=== PATIENT | female | born 1985 | race American Indian/Alaskan Native ===

== ENCOUNTER 2021-10-27 03:41 | Emergency (ER) | payer BC ==
--- NOTE | 2021-10-27 09:07 | Emergency Department Report ---
ED General Adult HPI - General Chief complaint: Extremity Problem,Nontraumatic Stated complaint: STOKE LIKE SYMPTOMS Time Seen by Provider: 10/27/21 07:46 Source: patient Mode of arrival: Ambulatory Limitations: No Limitations - History of Present Illness Initial comments: 36 yo F with history hypertension who now present with left upper and lower leg tingling and numbness x the last 6 months. She described it as pin and needle under her skin. She denies any illicit drug use. No other modifying or associated factors. - Related Data Previous Rx's Medication Instructions Recorded Last Taken Type hydrOXYzine PAMOATE [Vistaril] 50 mg PO Q6HR PRN 5 Days #15 10/27/21 Unknown Rx capsule NS Allergies Allergy/AdvReac Type Severity Reaction Status Date / Time No Known Allergies Allergy Verified 10/27/21 03:46 ED Review of Systems ROS: Stated complaint: STOKE LIKE SYMPTOMS Other details as noted in HPI Comment: All other systems reviewed and negative Skin: other (tingling and numbness upper left limb and lower left leg) ED Past Medical Hx - Social History Smoking Status: Current Every Day Smoker Substance Use Type: Alcohol - Medications Home Medications: Home Medications Medication Instructions Recorded Confirmed Last Taken Type hydrOXYzine PAMOATE [Vistaril] 50 mg PO Q6HR PRN 5 Days #15 10/27/21 Unknown Rx capsule NS ED Physical Exam - General Limitations: No Limitations General appearance: alert, in no apparent distress - Head Head exam: Present: normal inspection - Eye Eye exam: Present: normal appearance Pupils: Present: normal accommodation - ENT ENT exam: Present: normal exam, normal orophraynx, mucous membranes moist - Neck Neck exam: Present: normal inspection, full ROM. Absent: tenderness - Respiratory Respiratory exam: Present: normal lung sounds bilaterally. Absent: respiratory distress, accessory muscle use - Cardiovascular Cardiovascular Exam: Present: regular rate, normal rhythm, normal heart sounds - GI/Abdominal GI/Abdominal exam: Present: soft, normal bowel sounds. Absent: distended, tenderness - Extremities Exam Extremities exam: Present: normal inspection, full ROM, normal capillary refill. Absent: tenderness, pedal edema, joint swelling - Back Exam Back exam: Present: tenderness - Neurological Exam Neurological exam: Present: alert - Psychiatric Psychiatric exam: Present: normal affect, normal mood - Skin Skin exam: Present: warm, normal color ED Course Vital Signs 10/27/21 10/27/21 10/27/21 03:43 06:25 08:23 Temperature 97.9 F 97.6 F Pulse Rate 96 H 80 77 Respiratory 18 16 18 Rate Blood Pressure 165/113 Blood Pressure 169/102 [Right] O2 Sat by Pulse 95 99 100 Oximetry ED Medical Decision Making - Lab Data Result diagrams: 10/27/21 08:35 10/27/21 08:35 - Medical Decision Making here with tingling and numbness in her hands concern for likely electrolytes abnormality vs anxiety so will go ahead and order routine labs including CBC, CMP and Ua with thyroid panel Lab reviewed and noted to be within normal limits-- which makes anxiety plausable --pt reassured and d/c home vistaril with close follow up with her PCP Critical care attestation.: If time is entered above; I have spent that time in minutes in the direct care of this critically ill patient, excluding procedure time. ED Disposition Clinical Impression: Left upper extremity numbness, Lower extremity numbness, Anxiety Disposition: 01 HOME / SELF CARE / HOMELESS Is pt being admited?: No Does the pt Need Aspirin: No Condition: Stable Instructions: Managing Anxiety, Adult, Paresthesia, [id number] Additional Instructions: Take your medications as prescribed to continue to help your symptoms Increase your daily fluid to help your hydration Please call and follow-up with your primary doctor in the next 3 to 5 days for progress Please do not hesitate to call or return to emergency room if your symptoms worsen Prescriptions: hydrOXYzine PAMOATE [Vistaril] 50 mg PO Q6HR PRN 5 Days #15 capsule NS PRN Reason: Anxiety Referrals: PRIMARY CARE, [Primary Care Provider] - 3-5 Days Time of Disposition: 13:17
[2021-10-27 09:17] LABS: Basophils # (Auto) 0.1 K/mm3 (0.0-0.1); Basophils % (Auto) 0.9 % (0.0-1.8); Eosinophils # (Auto) 0.1 K/mm3 (0.0-0.4); Eosinophils % (Auto) 1.9 % (0.0-4.3); Hematocrit 40.6 % (30.3-42.9); Hemoglobin 13.4 gm/dl (10.1-14.3); Lymphocytes # (Auto) 1.8 K/mm3 (1.2-5.4); Mean Corpuscular HGB Conc 33 % (30-34); Mean Corpuscular Volume 98 fl (79-97); Monocytes # (Auto) 0.7 K/mm3 (0.0-0.8); Monocytes % (Auto) 9.9 % (0.0-7.3); Platelet Count 281 K/mm3 (140-440); Red Blood Count 4.13 M/mm3 (3.65-5.03); Red Cell Distribution Width 13.3 % (13.2-15.2)
[2021-10-27 09:21] LABS: Alanine Aminotransferase 22 units/L (7-56); Albumin 4.4 g/dL (3.9-5); Blood Urea Nitrogen 10 mg/dL (7-17); Calcium 9.2 mg/dL (8.4-10.2); Hemolysis Index 4
[2021-10-27 09:34] LABS: Free T4 (Free Thyroxine) 0.83 ng/dL (0.76-1.46)
[2021-10-27 09:39] LABS: INR 0.89 (0.87-1.13)
[2021-10-27 09:40] LABS: Partial Thromboplastin Time 25.9 Sec. (24.2-36.6)
[2021-10-27 10:07] LABS: BUN/Creatinine Ratio 14
[2021-10-27 10:51] LABS: Bacteria,Urine 2+ /HPF (Negative); Mucus,Urine FEW /HPF
[2021-10-27 10:57] LABS: Color,Urine Straw (Yellow)
[2021-10-27 13:38] LABS: Amphetamine Screen,Urine Negative; Benzodiazepines Screen,Urine Negative; Cannabinoid Screen,Urine Negative; Methadone Screen,Urine Negative; Opiate Screen,Urine Negative
[2021-10-27 13:59] VITALS: BP 150/86
[2021-10-27 14:59] LABS: Cocaine Screen,Urine Positive
== END 2021-10-27 13:59 | disposition home or self-care (01) ==
LOC: ED 03:41
DX: R20.0 Anesthesia of skin (principal); F41.9 Anxiety disorder, unspecified; Z79.899 Other long term (current) drug therapy
CPT/HCPCS: 36415; 80053; 80307; 81001; 82550; 84439; 84443; 85025; 85610; 85730; 99283